=== PATIENT | male | born 1980 | race Caucasian/White ===

== ENCOUNTER 2020-11-07 19:08 | Inpatient (IN) | payer OTHER, SELFPAY ==
[~2020-11-07] VITALS: Ht 182.9 cm; Wt 81.6 kg
[2020-11-07] MEDS: BLOOD GLUCOSE MONITORING 1 DEV DEV FS SCH ×3 (07:00→23:25)
[2020-11-07 19:30] VITALS: BP 127/79
--- NOTE | 2020-11-07 19:30 | NUR ---
BIBA FROM CONSTRUCTION SITE, ALOC, ETOH. WAS FOUND AWAKE AND COMBATIVE SPITTING, BLOOD NOTED TO MOUTH AND NOSE. SPIT MASK PLACED TROUBLE OPERATOR. IS RESTLESS. ATTACHED TO CM = ST, O2 SAT = 93% SL 20G TO LEFT FOOT PMH : DM (WEARING MEDICAL ALERT BRACELET) UNKNOWN ALLERGIES
[2020-11-07] MEDS ORDERED: NACL 0.9% 1,000 ML IV SCH (19:35)
[2020-11-07 20:01] LABS: BASOPHILS # (AUTO) 0.6 K/uL (0.00-0.22); BASOPHILS % (AUTO) 5.1 % (0.0-2.0); EOSINOPHILS # (AUTO) 0.1 K/uL (0-0.4); EOSINOPHILS % (AUTO) 0.7 % (0.0-4.0); HEMATOCRIT 47.2 % (36-52); HEMOGLOBIN 15.7 g/dL (12.0-18.0); LYMPHOCYTES # (AUTO) 2.3 K/uL (2.0-11.5); LYMPHOCYTES % (AUTO) 20.9 % (20.5-51.1); MEAN CORPUSCULAR HEMOGLOBIN 30 pg (27-31); MEAN CORPUSCULAR HGB CONC 33 g/dL (33-37); MEAN CORPUSCULAR VOLUME 91.1 fL (80-94); MONOCYTES # (AUTO) 0.3 K/uL (0.8-1.0); MONOCYTES % (AUTO) 2.3 % (1.7-9.3); NEUTROPHILS # (AUTO) 7.9 K/uL (1.8-7.7); PLATELET COUNT (AUTO) 171 K/uL (140-450); RED BLOOD CELL COUNT(AUTO) 5.18 MIL/uL (4.20-6.10); RED CELL DISTRIBUTION WIDTH 13.3 % (11.6-13.7); WHITE BLOOD COUNT (AUTO) 11.1 K/uL (4.8-10.8)
--- NOTE | 2020-11-07 20:07 | NUR ---
RETURNED FROM CT
[2020-11-07 20:16] LABS: ALBUMIN 3.7 g/dL (3.4-5.0); ANION GAP 22.6 (8-16); CARBON DIOXIDE 18.5 mmol/L (21-32); POTASSIUM 3.1 mmol/L (3.5-5.1); TOTAL BILIRUBIN 0.4 mg/dL (0.0-1.0)
[2020-11-07] MEDS ORDERED: POTASSIUM CHL 20 MEQ/NACL 0.9% 1,000 ML IV ONE ×2 (20:50→22:35)
[2020-11-07] MEDS ORDERED: MAG SULF 2000 MG/WATER PREMIX 50 ML IV PRN ×2 (21:25→23:55)
[2020-11-07] MEDS ORDERED: MORPHINE SULFATE 2 MG/ML SYR IVP PRN (21:25)
[2020-11-07] MEDS ORDERED: ONDANSETRON 4 MG/2 ML VIAL IVP PRN ×2 (21:25→23:55)
[2020-11-07] MEDS ORDERED: DOCUSATE SODIUM 100 MG GELCAP PO PRN (21:25)
[2020-11-07] MEDS ORDERED: ACETAMINOPHEN 325 MG TAB PO PRN ×2 (21:25→23:55)
[2020-11-07] MEDS ORDERED: LORazepam 2 MG/ML VIAL IM/IVP PRN (21:25)
[2020-11-07] MEDS ORDERED: SODIUM PHOS / POTASSIUM PHOS 1 PKT PDR PO PRN (21:25)
[2020-11-07] MEDS ORDERED: ZOLPIDEM 5 MG TAB PO PRN (21:25)
[2020-11-07] MEDS: NACL 0.9% 1,000 ML IV SCH (21:25)
[2020-11-07] MEDS ORDERED: DEXTROSE 50% 50 ML SYR IVP PRN (21:25)
[2020-11-07] MEDS ORDERED: POTASSIUM CHLORIDE 10 MEQ TABER PO PRN ×2 (21:25→23:55)
[2020-11-07] MEDS ORDERED: HYDROcodone/APAP 5/325 MG 1 TAB TAB PO PRN ×2 (21:25→23:55)
[2020-11-07] MEDS ORDERED: INSULIN LISPRO SLIDING SCALE 100 UNITS/ML VIAL SUBQ PRN (21:25)
--- NOTE | 2020-11-07 21:29 | NUR ---
FACIAL ABRASIONS CLEANSED. APPROX 1 CM LACERATION NOTED RIGHT EYEBROW
[2020-11-07] MEDS ORDERED: KCL 20 MEQ/WATER INJ PREMIX 200 ML IV SCH (21:30)
[2020-11-07 21:57] LABS: CHOL/HDL RATIO 5.5 (1-4.5); FREE T4 (FREE THYROXINE) 1.04 ng/dL (0.76-1.46); PHOSPHORUS 4.8 mg/dL (2.5-4.9); THYROID STIMULATING HORMONE 1.23 uIU/mL (0.34-3.74)
[2020-11-07] MEDS ORDERED: LORazepam 2 MG/ML VIAL IVP ONE ×2 (22:05→22:30)
[2020-11-07] MEDS ORDERED: ETOMIDATE 20 MG/10 ML VIAL IVP ONE (22:16)
[2020-11-07] MEDS ORDERED: INTUBATION KIT MC ONE (22:17)
[2020-11-07] MEDS ORDERED: INSULIN REGULAR, HUMAN 100 UNIT/ML VIAL IVP ONE (22:30)
[2020-11-07] MEDS ORDERED: HALOPERIDOL IM 5 MG/ML VIAL IM ONE (22:30)
[2020-11-07] MEDS ORDERED: NACL 0.9% 3,000 ML IV ONE (22:30)
[2020-11-07] MEDS ORDERED: diphenhydrAMINE 50 MG/ML VIAL IVP ONE (22:30)
--- NOTE | 2020-11-07 22:30 | NUR ---
AWAKE PULLING ON RESTRAINTS, BELIGERANT, SPITTING ONTO STAFF, MUCH PROFANITY USED. UNABLE TO CALM PT TO BE ABLE TO PROVIDE CARE AT THIS TIME. ORDERS RECEIVED AND MEDICATED ORDERED
--- NOTE | 2020-11-07 22:53 | NUR ---
PT IS AGITATED/AGGRESSIVE AND UNABLE TO OBTAIN/PERFORM EKG AT THIS TIME
[2020-11-07 23:19] LABS: PROTHROMBIN TIME 9.2 secs (10.8-13.4)
--- NOTE | 2020-11-07 23:45 | NUR ---
ACCUCHECK = HIGH. INSULIN GTT BEGUN.
[2020-11-07] MEDS: INSULIN REGULAR, HUMAN 100 UNIT in NACL 0.9% 100 ML IV SCH ×2 (23:48)
[2020-11-07] MEDS ORDERED: INSULIN REGULAR, HUMAN 100 UNIT in NACL 0.9% 100 ML IV SCH ×2 (23:50)
[2020-11-07] MEDS ORDERED: MAGNESIUM OXIDE 400 MG TAB PO PRN (23:55)
[2020-11-07] MEDS ORDERED: MORPHINE SULFATE 4 MG/ML SYR IVP PRN (23:55)
[2020-11-08] VITALS (21 sets, daily range): BP systolic 116–157; BP diastolic 59–96
[2020-11-08] MEDS ORDERED: HALOPERIDOL IM 5 MG/ML VIAL ONE
--- NOTE | 2020-11-08 | NUR ---
RESTLESS, AGITATED. RIPPED OUT IV, HAS MANAGED TO GET ALL MONITORING EQUIPMENT REMOVED. INCONTINENT OF URINE. CLENCHING FISTS AND PULLING ON RESTRAINTS
[2020-11-08] MEDS ORDERED: LORazepam 2 MG/ML VIAL IVP PRN (00:05)
[2020-11-08] MEDS ORDERED: HALOPERIDOL IM 5 MG/ML VIAL IM ONE (00:15)
[2020-11-08] MEDS: BLOOD GLUCOSE MONITORING 1 DEV DEV FS SCH ×17 (00:25→20:33)
--- NOTE | 2020-11-08 00:50 | NUR ---
REMAINS RESTESS, PULLING ON TUBES. IV REESTABLISHED 20G LEFT A/C. PREPARING FOR INTUBATION.
--- NOTE | 2020-11-08 01:05 | NUR ---
DR. BARRIENTOS, RT AT BEDSIDE MEDICATED ORDERED WITH ETOMIDATE AND ROCURONIUM
[2020-11-08] MEDS ORDERED: PROPOFOL 1000 MG/100 ML PREMIX 100 ML IV ONE ×5 (01:08→07:39)
--- NOTE | 2020-11-08 01:10 | NUR ---
INTUBATED, 26 CM TO THE TEETH. ATTACHED TO VENT.
--- NOTE | 2020-11-08 01:20 | NUR ---
POST INTUBATION CXR DONE.
--- NOTE | 2020-11-08 01:45 | NUR ---
F/C INSERTED WITHOUT DIFFICULTY WITH IMMEDIATE RETURN ENEIDA COLORED URINE
--- NOTE | 2020-11-08 01:50 | NUR ---
PROPOFOL GTT ORDERED. PT HAS BEEN SLIGHTLY RESTLESS.
[2020-11-08 02:21] LABS: BARBITURATE, URINE NEGATIVE ng/ml (NEG <=200); BENZODIAZEPINE, URINE POSITIVE ng/mL (NEG <=200); CANNABINOID, URINE NEGATIVE ng/mL (NEG <=50); COCAINE, URINE NEGATIVE ng/mL (NEG <=300); OPIATE, URINE NEGATIVE ng/mL (NEG <=2000); PHENCYCLIDINE SCREEN,URINE NEGATIVE ng/mL (NEG <=25)
[2020-11-08 02:24] LABS: APPEARANCE,URINE CLEAR (CLEAR); BILIRUBIN,URINE NEGATIVE (NEGATIVE); BLOOD, URINE 3+ (NEGATIVE); COLOR,URINE AMBER (YELLOW); LEUKOCYTE ESTERASE ,URINE NEGATIVE (NEGATIVE); NITRITE, URINE NEGATIVE (NEGATIVE); UGLUCOSE 3+ (NEGATIVE)
[2020-11-08] MEDS: NACL 0.9% 1,000 ML IV SCH ×3 (02:25→13:25)
[2020-11-08] MEDS: DEXT 5% / NACL 0.45% 1,000 ML IV SCH ×4 (02:25→13:25)
[2020-11-08 02:26] LABS: WBC,URINE 0-5 /HPF (0-5)
--- NOTE | 2020-11-08 03:06 | NUR ---
PAGED DR. TURNER VIA EXCHANGER. DR. TURNER CALLED BACK IMMEDIATELY. CRITICAL RESULTS WERE REPORTED TO DOCTOR. NO CHANGES MADE AT THIS TIME.
[2020-11-08] MEDS ORDERED: NOREPINEPHRINE 4 MG in DEXTROSE 5% 250 ML IV PRN (03:55)
[2020-11-08] MEDS ORDERED: cefTRIAXone 250 MG VIAL ONE (04:00)
[2020-11-08] MEDS ORDERED: NOREPINEPHRINE 4 MG/4 ML VIAL IV ONE (04:01)
[2020-11-08 05:16] LABS: BASOPHILS % (AUTO) 0.3 % (0.0-2.0); HEMATOCRIT 41.3 % (36-52); LYMPHOCYTES # (AUTO) 2.3 K/uL (2.0-11.5); LYMPHOCYTES % (AUTO) 18.9 % (20.5-51.1); MEAN CORPUSCULAR HEMOGLOBIN 31 pg (27-31); MEAN CORPUSCULAR HGB CONC 34 g/dL (33-37); MEAN CORPUSCULAR VOLUME 90.8 fL (80-94); MONOCYTES # (AUTO) 0.8 K/uL (0.8-1.0); MONOCYTES % (AUTO) 6.3 % (1.7-9.3); NEUTROPHILS # (AUTO) 9.1 K/uL (1.8-7.7); NEUTROPHILS % (AUTO) 74.5 % (42.2-75.2); PLATELET COUNT (AUTO) 173 K/uL (140-450); RED BLOOD CELL COUNT(AUTO) 4.55 MIL/uL (4.20-6.10); RED CELL DISTRIBUTION WIDTH 13.4 % (11.6-13.7); WHITE BLOOD COUNT (AUTO) 12.2 K/uL (4.8-10.8)
[2020-11-08 05:34] LABS: ALBUMIN 3.1 g/dL (3.4-5.0); ANION GAP 13.3 (8-16); CARBON DIOXIDE 21.8 mmol/L (21-32); CREATININE 0.9 mg/dL (0.6-1.3); MAGNESIUM 1.7 mg/dL (1.8-2.4); POTASSIUM 3.1 mmol/L (3.5-5.1); TOTAL BILIRUBIN 0.2 mg/dL (0.0-1.0)
--- NOTE | 2020-11-08 06:02 | NUR ---
REPORT CALLED TO GEOFFREY RN
--- NOTE | 2020-11-08 06:05 | NUR ---
TRANSFERRED PATIENT FROM ED TO ICU WITH NO INCIDENT. RECEIVED PATIENT INTUBATED WITH 7.5 AT 26 CM AT TEETH. TUBE IS IN PLACE AND SECURED WITH ANCHOR-FAST. VENT CONNECTED TO RED OUTLET. ALARMS AUDIBLE. AMBU BAG AT BEDSIDE. NO SOB OR DISTRESS NOTED. WILL CONTINUE TO MONITOR PATIENT.
[2020-11-08] MEDS ORDERED: ETOMIDATE 20 MG/10 ML VIAL IVP ONE ×2 (06:11→06:15)
--- NOTE | 2020-11-08 06:15 | NUR ---
TRANSFERED TO ICU 8 VIA GURNEY ATTACHED TO AIR BREAKER OPERATOR, ACCOMPANIED BY RT, ERT, RN. VENTILATED PER AMBU BAG DURING TRANSPORT. CM = ST. INSULIN GTT INFUSING AT 4U/HR. PROPOFOL INFUSING AT 100 MCG/KG, LEVOPHED INFUSING AT 1.5MCG/KG/MINUTE.
--- NOTE | 2020-11-08 06:30 | NUR ---
ADMITTED FROM ER THIS 40 YEAR OLD MALE PATIENT;ORALLY INTUBATED AND VENTILATED AT 30% FIO2; SO2 100% . CARDIACSCOPE SHOWS ON SINUS TACHY HR 107/MIN; NO ARRHYTHMIAS SEEN. IVF IN PROGRESS NORMAL SALINE WITH 20 MEQ KCL AT 100 ML/HR, D5 1/2 NS AT 200 ML/HR, LEVOPHED DRIP AT 1.5 MCG/MIN, REGULAR INSULIN DRIP AT 4 UNITS/HR. AND PROFOPOL DRIP AT 100 MCG/.KG./MIN. WITH BILATERAL SOFT WRIST RESTRAINTS IN PLACE. ABDOMEN IS SOFT, KEPT NPO ORDERED. WITH EASON CATH IN SITU TO GRAVITY DRAINAGE BAG DRAINING TO CLOUDY URINE OUTPUT; INTACT.
--- NOTE | 2020-11-08 06:45 | NUR ---
INITIAL V/S FOLLOW BP 133/81 HR 103/MIN RR 20/MIN.
--- NOTE | 2020-11-08 07:00 | NUR ---
[facility] SCREENING SPECIMEN SENT TO MICROBIOLOGY.
--- NOTE | 2020-11-08 07:20 | NUR ---
ENDORSED TO AM SHIFT RN FOR CONTINUITY OF CARE.
--- NOTE | 2020-11-08 07:21 | NUR ---
RECEIVED REPORT FROM CHIEF CONTRACT OFFICER NURSE. PT IS RESTING IN BED. FLACC 0. ETT IN PLACE FIO2 30%, R 20, PEEP 5. RIGHT IV ON FOREARM 20G, LEFT IV ON AC 20G AND LEFT EJ 18G. INFUSING INSULIN AT 4 MCG/HR, LEVOPHED AT 1 MCG/MIN, K 20 EMQ AT 100ML/HR, DEXTROSE 5 % AT 200ML/HR, PROPOFOL AT 95 MCG/MIN, AND NS AT 150 ML/HR. SEVERAL ABRASIONS ON LOWER EXTREMITIES, HANDS AND FACE. EASON DRAINING BY GRAVITY. SAFETY MEASURES IN PLACE. CALL LIGHT WITHIN REACH. WILL CONTINUE TO MONITOR
--- NOTE | 2020-11-08 08:45 | NUR ---
INSERTED NG TUBE PRESCRIBED PER MD ORDER. PT TOLERATED WELL. AWAITING CHEST XRAY FOR PLACEMENT. SAFETY MEASURES IN PLACE. WILL CONTINUE TO MONITOR
[2020-11-08] MEDS ORDERED: chlordiazePOXIDE 25 MG CAP PO SCH (09:00)
[2020-11-08] MEDS ORDERED: PANTOPRAZOLE 40 MG INJ VIAL IVP SCH (09:00)
--- NOTE | 2020-11-08 09:00 | NUR ---
RECEIVED CALL FROM SOSA ZHONG, PT MOTHER. SOSA STATED SHE WILL BE THE PERSON OF CONTACT TO MAKE DECISIONS FOR PATIENT. WANTED UPDATE. UPDATE GIVEN. SOSA LEFT PHONE NUMBER [phone] TO CALL WITH ANY CHANGES OR CONCERNS
--- NOTE | 2020-11-08 09:30 | NUR ---
ADMINISTERED SCHED MED PRESCRIBED PER MD ORDER. PT TOLERATED WELL. SAFETY MEASURES IN PLACE. WILL CONTINUE TO MONITOR
[2020-11-08] MEDS: ENOXAPARIN 40 MG/0.4 ML SYR SUBQ SCH (09:51)
[2020-11-08] MEDS: PROPOFOL 1000 MG/100 ML PREMIX 100 ML IV PRN ×3 (10:05→20:30)
--- NOTE | 2020-11-08 10:20 | NUR ---
PATIENT HAS BEEN SCREENED AND CATEGORIZED HIGH NUTRITION RISK. PATIENT WILL BE SEEN WITHIN 1-2 DAYS OF ADMISSION. 11/09/20 REVIEWED BY ADELINE JEREZ RD
--- NOTE | 2020-11-08 10:45 | NUR ---
DR. TURNER AT BEDSIDE ASSESSING PATIENT
[2020-11-08] MEDS: MIDAZOLAM MDV 100 MG in NACL 0.9% 80 ML IV PRN (11:00)
[2020-11-08] MEDS ORDERED: MAG SULF 2000 MG/WATER PREMIX 50 ML IV SCH (11:00)
--- NOTE | 2020-11-08 11:15 | NUR ---
ORAL CARE PROVIDED TO PATIENT. PT TOLERATED WELL. SAFETY MEASURES IN PLACE. WILL CONTINUE TO MONITOR
--- NOTE | 2020-11-08 12:05 | NUR ---
11/08/20 RD INITIAL ASSESSMENT COMPLETED PLEASE REFER TO NUTRITION ASSESSMENT UNDER CARE ACTIVITY FOR ESTIMATED NUTRITIONAL NEEDS. 1. CURRENTLY NPO 2. WHEN MEDICALLY STABLE CONSIDER GLUCERNA 1.2 @ 70 ML/HR X 24 HR, START AT 10 ML/HR AND ADVANCE BY 10 ML/HR Q8H; FLUSH OF 50 ML Q4H 3. IF/WHEN EXTUBATED, CONSIDER SWALLOW EVALUATION FOR PO INTAKE; CCHO 75 GM DIET RESTRICTION 4. RD TO FOLLOW-UP 2-3 DAYS, HIGH RISK YULIANA COLEMAN RD
[2020-11-08] MEDS: chlordiazePOXIDE 25 MG CAP NG SCH ×2 (12:17→17:46)
--- NOTE | 2020-11-08 12:30 | NUR ---
PICC LINE NURSE BILL AT BEDSIDE. REPORT GIVEN. PT TO RECEIVE PICC LINE. SAFETY MEASURES IN PLACE. WILL CONTINUE TO MONITOR
[2020-11-08] MEDS ORDERED: TOMOMETER 1 DEV DEV MC ONE (13:24)
--- NOTE | 2020-11-08 13:24 | NUR ---
ADMINISTERED SCHEDULE MEDS PER MD ORDERS. PT TOLERATED. WILL CONTINUE TO MONITOR
--- NOTE | 2020-11-08 13:56 | NUR ---
PT IS RESTING IN BED WITH NO SIGNS OF DISTRESS. WILL CONTINUE TO MONITOR.
[2020-11-08 14:09] LABS: ANION GAP 11.5 (8-16); CARBON DIOXIDE 24.7 mmol/L (21-32); CREATININE 0.7 mg/dL (0.6-1.3); POTASSIUM 3.2 mmol/L (3.5-5.1)
[2020-11-08] MEDS: INSULIN REGULAR, HUMAN 100 UNIT in NACL 0.9% 100 ML IV SCH ×2 (14:15)
--- NOTE | 2020-11-08 14:20 | NUR ---
REPOSITIONED PT COMFORTABLY. PT TOLERATED WELL. SAFETY MEASURES IN PLACE. WILL CONTINUE TO MONITOR
[2020-11-08] MEDS: KCL 20 MEQ/WATER INJ PREMIX 200 ML IV PRN (15:42)
[2020-11-08 16:30] LABS: ANION GAP 12.8 (8-16); CARBON DIOXIDE 23.2 mmol/L (21-32); CREATININE 0.7 mg/dL (0.6-1.3)
--- NOTE | 2020-11-08 16:56 | NUR ---
NOTIFIED DR TURNER THAT ANION GAP CLOSED FOR TWO CONSECUTIVE DRAWS. ORDERED TO STOP DKA PROTOCOL, START LANTUS 20 UNITS SQ DAILY, STOP ALL FLUIDS AND START D5NS 60CC/HR, BLOOD GLUCOSE MONITORING ACHS WITH HUMALOG SLIDING SCALE
[2020-11-08] MEDS: DEXT 5% /NACL 0.9% 1,000 ML IV SCH (17:15)
--- NOTE | 2020-11-08 17:20 | NUR ---
MOTHER SOSA WANTS FATHER TONNY [phone] TO BE ON THE FACE SHEET. PBX UPDATED. SAFETY MEASURES IN PLACE. WILL CONTINUE TO MONITOR
[2020-11-08] MEDS: INSULIN LANTUS 100 UNITS/ML 10 ML VIAL SUBQ SCH (17:21)
--- NOTE | 2020-11-08 17:21 | NUR ---
MOTHER AT BEDSIDE VISITING PATIENT. UPDATE GIVEN. SAFETY MEASURES IN PLACE. WILL CONTINUE TO MONITOR
--- NOTE | 2020-11-08 17:36 | NUR ---
FATHER VISITING AT BEDSIDE. UPDATE GIVEN. SAFETY MEASURES IN PLACE. WILL CONTINUE TO MONITOR
--- NOTE | 2020-11-08 18:30 | NUR ---
REPOSITIONED PATIENT COMFORTABLY. PT TOLERATED WELL. SAFETY MEASURES IN PLACE. WILL CONTINUE TO MONITOR
--- NOTE | 2020-11-08 19:05 | NUR ---
ENDORSED TO NIGHTSHIFT NURSE FOR CONTINUITY OF CARE
--- NOTE | 2020-11-08 19:35 | NUR ---
RECEIVED REPORT FROM DAY SHIFT; PT SEDATED RASS-3 WT 81 KG ON PROPOFOL @ 45 MCG/KG/MIN VERSED 6 MG/HR. PT OPENS EYES UNABLE TO FOLLOW COMMANDS, BILAT SOFT WRIST RESTRAINTS IN PLACE, PUT TRYING TO PULL LINES. ETT TO VENT ON 24% FIO2 R 20 PEEP 5. NO SECRETIONS NOTED. SR ON MONITOR: +2 RADIAL/PEDAL PULSES. NO EDEMA NOTED. EASON CATH IN PLACE. OGT IN PLACE. SKIN INTACT. L UPPER ARM PICC LINE IN PLACE. SAFETY PRECAUTIONS IN PLACE. BED LOCKED IN LOWEST POSITION. FLACC 0.
[2020-11-08] MEDS: INSULIN LISPRO SLIDING SCALE 100 UNITS/ML VIAL SUBQ PRN (20:33)
--- NOTE | 2020-11-08 22:15 | NUR ---
PT TURNED REPOSITIONED; FLACC 0. NO S/S OF DISTRESS NOTED. WILL CONTINUE TO OBSERVE.
[2020-11-09] VITALS (24 sets, daily range): BP systolic 75–150; BP diastolic 8–105
[2020-11-09] MEDS: PROPOFOL 1000 MG/100 ML PREMIX 100 ML IV PRN ×4 (00:30→17:29)
[2020-11-09] MEDS: chlordiazePOXIDE 25 MG CAP NG SCH ×4 (00:34→17:27)
--- NOTE | 2020-11-09 00:35 | NUR ---
PT SEDATED; RASS-3 NO S/S OF DISTRESS NOTED. WILL CONTINUE TO OBSERVE
--- NOTE | 2020-11-09 02:11 | NUR ---
PT SEDATED; RASS -3, FLACC 0. PT TURNED AND REPOSITIONED.
[2020-11-09] MEDS: BLOOD GLUCOSE MONITORING 1 DEV DEV FS SCH ×4 (05:52→19:58)
[2020-11-09] MEDS: INSULIN LISPRO SLIDING SCALE 100 UNITS/ML VIAL SUBQ PRN ×3 (05:54→20:17)
[2020-11-09] MEDS: MIDAZOLAM MDV 100 MG in NACL 0.9% 80 ML IV PRN ×2 (06:22→22:54)
[2020-11-09 06:26] LABS: BASOPHILS % (AUTO) 0.5 % (0.0-2.0); EOSINOPHILS # (AUTO) 0.1 K/uL (0-0.4); EOSINOPHILS % (AUTO) 0.8 % (0.0-4.0); HEMATOCRIT 39.2 % (36-52); HEMOGLOBIN 13.3 g/dL (12.0-18.0); LYMPHOCYTES % (AUTO) 25.9 % (20.5-51.1); MEAN CORPUSCULAR HEMOGLOBIN 31 pg (27-31); MEAN CORPUSCULAR HGB CONC 34 g/dL (33-37); MEAN CORPUSCULAR VOLUME 91.8 fL (80-94); MONOCYTES # (AUTO) 0.6 K/uL (0.8-1.0); MONOCYTES % (AUTO) 7.9 % (1.7-9.3); NEUTROPHILS # (AUTO) 5.1 K/uL (1.8-7.7); NEUTROPHILS % (AUTO) 64.9 % (42.2-75.2); PLATELET COUNT (AUTO) 133 K/uL (140-450); RED BLOOD CELL COUNT(AUTO) 4.27 MIL/uL (4.20-6.10); RED CELL DISTRIBUTION WIDTH 13.9 % (11.6-13.7); WHITE BLOOD COUNT (AUTO) 7.8 K/uL (4.8-10.8)
--- NOTE | 2020-11-09 06:33 | NUR ---
MAX CARE DONE; PT TURNED AND REPOSITIONED NO S/S OF DISTRESS NOTED.
[2020-11-09 07:03] LABS: ANION GAP 12.5 (8-16); CARBON DIOXIDE 23.8 mmol/L (21-32); CREATININE 0.6 mg/dL (0.6-1.3); POTASSIUM 3.3 mmol/L (3.5-5.1)
--- NOTE | 2020-11-09 07:30 | NUR ---
RECEIVED REPORT FROM MANAGER EQUIPMENT NURSE. IN BED, HOB ELEVATED. FLACC 0. ETT TO VENT ACVC FIO2 24%, TV 500, R 20, PEEP 5. RIGHT IV LEFT FOREARM IV 20G AND LEFT EJ 18G. WITH COLLEEN PICC D5NS AT 60ML/HR, PROPOFOL AT 45 MCG/MIN, VERSED AT 6MG/HR. WITH MULTIPLE BRUISING, SWELLING AND ABRASIONS. EASON DRAINING BY GRAVITY. OGT INTACT. SAFETY MEASURES IN PLACE. CALL LIGHT WITHIN REACH. WILL CONTINUE TO MONITOR
--- NOTE | 2020-11-09 07:40 | NUR ---
RECEIVED INTUBATED PT WITH A 7.5 ETT SECURED @25TEETH/GUM ON VENT. SETTINGS AC 20, VT 500, PEEP 5 AND FIO2 24%. WHEN ENTERED ROOM PT VERY AGITATED MOVING AROUND IN BED, NURSE NOTIFIED. PT SUCTIONED OBTAINED SCANT AMOUNT OF THICK WHITE SECRETIONS, AIRWAYS IS PATENT AND ETT IS SECURE WITH ANCHOR FAST DEVICE. VENT IS PLUGGED INTO A RED OUTLET WITH ALARMS ON AND FUNCTIONING. WILL CONTINUE TO MONITOR.
[2020-11-09] MEDS: INSULIN LANTUS 100 UNITS/ML 10 ML VIAL SUBQ SCH (08:05)
[2020-11-09] MEDS: ENOXAPARIN 40 MG/0.4 ML SYR SUBQ SCH (08:05)
[2020-11-09] MEDS: PANTOPRAZOLE 40 MG INJ VIAL IVP SCH (08:05)
[2020-11-09] MEDS: DEXT 5% /NACL 0.9% 1,000 ML IV SCH (08:06)
[2020-11-09] MEDS: KCL 20 MEQ/WATER INJ PREMIX 200 ML IV PRN (08:06)
--- NOTE | 2020-11-09 08:45 | NUR ---
DUE MEDS GIVEN. ORAL CARE AND EASON CARE DONE. TURNED AND REPOSITIONED
--- NOTE | 2020-11-09 10:40 | NUR ---
SEEN AND EXAMINED BY DR GARCIA WITH NEW ORDERS NOTED AND CARRIED OUT
[2020-11-09] MEDS ORDERED: POTASSIUM CHLORIDE 20% 40 MEQ/15 ML UDC GT SCH ×2 (11:00)
--- NOTE | 2020-11-09 11:15 | NUR ---
STARTED PRECEDEX DRIP AT 0.7MCG/KG/HR. WILL TITRATE DOWN ON PROPOFOL AND VERSED ORDERED
[2020-11-09] MEDS: DEXMEDETOMIDINE HCL 400 MCG in NACL 0.9% 96 ML IV PRN ×3 (11:46→22:54)
[2020-11-09] MEDS: PHENobarbital 130 MG/ML VIAL IV SCH ×2 (11:46→20:20)
--- NOTE | 2020-11-09 15:50 | NUR ---
TUBE FEEDING STARTED GLUCERNA 1.2 20CC/HR TO INCREASE BY 10CC EVERY 4HRS UNTIL GOAL OF 50CC/HR IS MET
--- NOTE | 2020-11-09 17:29 | NUR ---
PT REMAINS ON DOCUMENTED VENT SETTINGS. PT SEDATED NOT IN ANY DISTRESS. VENT ALARMS ON AND FUNCTIONING.
--- NOTE | 2020-11-09 17:30 | NUR ---
MAX CARE DONE. TURNED AND REPOSITIONED PT
--- NOTE | 2020-11-09 18:30 | NUR ---
RASS-3, NO RESPIRATORY DISTRESS, NO S/S OF PAIN. TITRATE DOWN PROPOFOL AND VERSED ORDERED
--- NOTE | 2020-11-09 19:35 | NUR ---
RECEIVED REPORT FROM DAY SHIFT; PT SEDATED RASS-3 WT 81 KG ON PROPOFOL @ 45 MCG/KG/MIN VERSED 6 MG/HR. PT OPENS EYES UNABLE TO FOLLOW COMMANDS, BILAT SOFT WRIST RESTRAINTS IN PLACE, PUT TRYING TO PULL LINES. ETT TO VENT ON 24% FIO2 R 20 PEEP 5. NO SECRETIONS NOTED. SR ON MONITOR: +2 RADIAL/PEDAL PULSES. NO EDEMA NOTED. EASON CATH IN PLACE. OGT IN PLACE WITH FEEDINGS RUNNING. SKIN INTACT. L UPPER ARM PICC LINE IN PLACE. SAFETY PRECAUTIONS IN PLACE. BED LOCKED IN LOWEST POSITION. FLACC 0. Addendum: 11/09/[address] Traylor RN propofol @ 10 mcg/kg/min, versed @ 2mg
--- NOTE | 2020-11-09 20:27 | NUR ---
PT RECEIVED ON AC/VC 500 +5 f20 W/ 7.5 ETT SECURED @ 25CM. VENT IS PLUGGED INTO RED OUTLET W/ ALARMS ON AND AUDIBLE AMBU IS AT BEDSIDE WILL CONTINUE TO MONITOR
[2020-11-10] VITALS (48 sets, daily range): BP systolic 89–160; BP diastolic 38–104
[2020-11-10] MEDS: chlordiazePOXIDE 25 MG CAP NG SCH ×5 (00:40→23:26)
[2020-11-10] MEDS: PROPOFOL 1000 MG/100 ML PREMIX 100 ML IV PRN ×2 (00:41→07:00)
[2020-11-10] MEDS: DEXT 5% /NACL 0.9% 1,000 ML IV SCH ×2 (02:15→19:29)
[2020-11-10] MEDS: DEXMEDETOMIDINE HCL 400 MCG in NACL 0.9% 96 ML IV PRN ×3 (03:53→23:00)
[2020-11-10] MEDS: BLOOD GLUCOSE MONITORING 1 DEV DEV FS SCH ×4 (05:49→23:40)
[2020-11-10] MEDS: INSULIN LISPRO SLIDING SCALE 100 UNITS/ML VIAL SUBQ PRN ×2 (05:55→16:32)
[2020-11-10 06:20] LABS: ANION GAP 10.1 (8-16); CARBON DIOXIDE 24.2 mmol/L (21-32); CREATININE 0.7 mg/dL (0.6-1.3); POTASSIUM 3.3 mmol/L (3.5-5.1)
[2020-11-10 06:24] LABS: BASOPHILS % (AUTO) 0.4 % (0.0-2.0); EOSINOPHILS # (AUTO) 0.1 K/uL (0-0.4); EOSINOPHILS % (AUTO) 1.2 % (0.0-4.0); HEMATOCRIT 39.3 % (36-52); HEMOGLOBIN 13.1 g/dL (12.0-18.0); LYMPHOCYTES # (AUTO) 2.2 K/uL (2.0-11.5); LYMPHOCYTES % (AUTO) 25.5 % (20.5-51.1); MEAN CORPUSCULAR HEMOGLOBIN 31 pg (27-31); MEAN CORPUSCULAR HGB CONC 33 g/dL (33-37); MONOCYTES # (AUTO) 0.6 K/uL (0.8-1.0); NEUTROPHILS # (AUTO) 5.7 K/uL (1.8-7.7); NEUTROPHILS % (AUTO) 65.9 % (42.2-75.2); PLATELET COUNT (AUTO) 133 K/uL (140-450); RED BLOOD CELL COUNT(AUTO) 4.23 MIL/uL (4.20-6.10); RED CELL DISTRIBUTION WIDTH 13.6 % (11.6-13.7); WHITE BLOOD COUNT (AUTO) 8.7 K/uL (4.8-10.8)
--- NOTE | 2020-11-10 07:25 | NUR ---
RECEIVED INTUBATED PT WITH A 7.5 ETT SECURED @25TEETH/GUM ON VENT. SETTINGS AC 20, VT 500, PEEP 5 AND FIO2 24%. PT SLIGHTLY AGITATED MOVING AROUND IN BED, NURSE AWARE. PT SUCTIONED OBTAINED SMALL AMOUNT OF THICK WHITE SECRETIONS, AIRWAYS IS PATENT AND ETT IS SECURE WITH ANCHOR FAST DEVICE. VENT IS PLUGGED INTO A RED OUTLET WITH ALARMS ON AND FUNCTIONING. WILL CONTINUE TO MONITOR.
--- NOTE | 2020-11-10 07:30 | NUR ---
RECEIVED REPORT FROM CYLINDER CHECKER NURSE. IN BED, HOB ELEVATED. FLACC 0. ETT TO VENT ACVC FIO2 24%, TV 500, R 20, PEEP 5. RIGHT IV LEFT FOREARM IV 20G AND LEFT EJ 18G. WITH COLLEEN PICC D5NS AT 60ML/HR, PROPOFOL AT 5 MCG/MIN, VERSED AT 1MG/HR, PRECEDEX 1.2MCG/KG/HR. WITH MULTIPLE BRUISING, SWELLING AND ABRASIONS. EASON DRAINING BY GRAVITY. OGT IN PLACE. SAFETY MEASURES IN PLACE. CALL LIGHT WITHIN REACH. WILL CONTINUE TO MONITOR
--- NOTE | 2020-11-10 08:50 | NUR ---
DR GARCIA CALLED, ORDERED TO STOP PROPOFOL AND VERSED
[2020-11-10] MEDS: ENOXAPARIN 40 MG/0.4 ML SYR SUBQ SCH (09:00)
[2020-11-10] MEDS: INSULIN LANTUS 100 UNITS/ML 10 ML VIAL SUBQ SCH (09:00)
[2020-11-10] MEDS: PANTOPRAZOLE 40 MG INJ VIAL IVP SCH (09:00)
--- NOTE | 2020-11-10 09:15 | NUR ---
DUE MEDS GIVEN
--- NOTE | 2020-11-10 09:20 | NUR ---
DR GARCIA AT BEDSIDE, PLACED PT ON CPAP
--- NOTE | 2020-11-10 09:22 | NUR ---
CALLED TO ICU TO SPEAK WITH . PHYSICIAN HAS PT ON SBT. PHYSICIAN STATES TO EXTUBATE PT AFTER 10-15 MIN. ADEQUATE WEANING PARAMETERS ON SBT. PT ABLE TO OPEN EYES FOLLOW SIMPLE COMMANDS.
[2020-11-10] MEDS ORDERED: POTASSIUM CHLORIDE 10 MEQ TABER PO SCH (09:30)
--- NOTE | 2020-11-10 09:40 | NUR ---
ADEQUATE WEANING PARAMETERS NO ABG ORDERED BY . LEAK TEST POSITIVE FOR LEAK AROUND RN DOCUMENT IMPROVEMENT BALLOON. PT EXTUBATED AND PLACED ON 3L NC. NO STRIDOR HEARD ON AUSCULTATION. NURSE BEDSIDE.
--- NOTE | 2020-11-10 09:40 | NUR ---
RT AT BEDSIDE. PT EXTUBATED, PLACED ON 3L O2 NC. NO RESPIRATORY DISTRESS, O2SAT 98-100%
--- NOTE | 2020-11-10 10:07 | NUR ---
PT AGITATED AT THIS TIME MOVING AROUND IN BED REMOVING PULSE OX. PULSE OX REAPPLIED SPO2 96%. NO RESPIRATORY DISTRESS NOTED.
[2020-11-10] MEDS: LORazepam 2 MG/ML VIAL IM/IVP PRN ×6 (10:10→23:48)
--- NOTE | 2020-11-10 10:10 | NUR ---
PT CONFUSED, AGITATED, ATTEMPTING TO AMBULATE WITHOUT ASSIST. ATIVAN GIVEN ORDERED
--- NOTE | 2020-11-10 10:55 | NUR ---
PT STILL SEVERELY AGITATED AND RESTLESS. PAGED DR GARCIA. ORDERED PHENOBARBITAL 130MG IVP ONCE
[2020-11-10] MEDS ORDERED: PHENobarbital 130 MG/ML VIAL ONE (10:56)
[2020-11-10] MEDS ORDERED: PHENobarbital 130 MG/ML VIAL IV SCH (11:00)
--- NOTE | 2020-11-10 11:27 | NUR ---
PT KEEPS REMOVING NASAL CANNULA SPO2 94% ON ROOM AIR, NO SOB NOTED.
[2020-11-10] MEDS: KCL 20 MEQ/WATER INJ PREMIX 200 ML IV PRN (13:57)
[2020-11-10] MEDS ORDERED: DIAZEPAM PFS 10 MG/2 ML SYR IVP SCH (14:30)
--- NOTE | 2020-11-10 14:50 | NUR ---
CALLED DR GARCIA. NOTIFIED THAT PT IS TILL VERY AGITATE AND RESTLESS AND CONSTANTLY ATTEMPTING TO GET OUT OF BED AND PULL LINES . ORDERED VALIUM 10MG IVP ONCE AND TO PLCE PT ON 4 POINT RESTRAINTS
--- NOTE | 2020-11-10 15:00 | NUR ---
PLACED PT ON 4 POINT RESTRAINTS. WILL ASSESS Q15MIN AND CHECK VS Q15MIN
--- NOTE | 2020-11-10 17:00 | NUR ---
PT RESTLESS AND CONFUSED IN BED, ATTEMPTING TO BITE OFF RESTRAINTS. REPOSITIONED PT
--- NOTE | 2020-11-10 18:20 | NUR ---
MOTHER AT BEDSIDE
--- NOTE | 2020-11-10 18:30 | NUR ---
RESTRAINTS IN PLACE, PT STILL RESTLESS. VS STABLE, NO APPARENT DISTRESS, SKIN INTACT, GOOD CIRCULATION ON LIMBS
--- NOTE | 2020-11-10 23:30 | NUR ---
Pt. restless and confused on 4 point velcro restraints. Pulled out PICC line. Reinserted by JAMES Hinds to Rt. UA. Pulled out 3 cm and dressing reapplied by JAMES Hinds (PICC Line Nurse) as tip is in Rt. Atrium. Pt. oriented and given comfort and reassurance;more cooperative @ this time but . Secretions suctioned prn. Given Ativan prn. Precedex remains @ 1.2 mcg/Kg/Hr. Librium adm orally; able to swallow pills w/ water well. Kept clean & dry. Repositioned for comfort. Needs anticipated. Will cont. to monitor.
[2020-11-11] VITALS (45 sets, daily range): BP systolic 90–177; BP diastolic 56–102
[2020-11-11] MEDS: LORazepam 2 MG/ML VIAL IM/IVP PRN (00:52)
[2020-11-11] MEDS: DEXMEDETOMIDINE HCL 400 MCG in NACL 0.9% 96 ML IV PRN ×4 (02:20→19:28)
--- NOTE | 2020-11-11 03:30 | NUR ---
Pt. given Atian 2 mg prn and Precedex Drip. Asleep @ this time. SR on the scope. VSS Remains on 4 point restraint as pt. unpredictable and does awaken and attempt to twist body and pull out lines and equipments periodically. Will cont. to monitor.
[2020-11-11] MEDS: chlordiazePOXIDE 25 MG CAP NG SCH ×4 (06:00→23:40)
[2020-11-11 06:05] LABS: BASOPHILS % (AUTO) 0.3 % (0.0-2.0); EOSINOPHILS # (AUTO) 0.1 K/uL (0-0.4); EOSINOPHILS % (AUTO) 0.7 % (0.0-4.0); HEMATOCRIT 39.3 % (36-52); HEMOGLOBIN 13.3 g/dL (12.0-18.0); LYMPHOCYTES # (AUTO) 1.8 K/uL (2.0-11.5); LYMPHOCYTES % (AUTO) 21.5 % (20.5-51.1); MEAN CORPUSCULAR HEMOGLOBIN 31 pg (27-31); MEAN CORPUSCULAR HGB CONC 34 g/dL (33-37); MEAN CORPUSCULAR VOLUME 91.5 fL (80-94); MONOCYTES # (AUTO) 0.6 K/uL (0.8-1.0); MONOCYTES % (AUTO) 7.2 % (1.7-9.3); NEUTROPHILS # (AUTO) 5.8 K/uL (1.8-7.7); NEUTROPHILS % (AUTO) 70.3 % (42.2-75.2); PLATELET COUNT (AUTO) 129 K/uL (140-450); RED CELL DISTRIBUTION WIDTH 13.1 % (11.6-13.7); WHITE BLOOD COUNT (AUTO) 8.3 K/uL (4.8-10.8)
[2020-11-11 06:26] LABS: ANION GAP 13.4 (8-16); CARBON DIOXIDE 24.3 mmol/L (21-32); CREATININE 0.6 mg/dL (0.6-1.3)
[2020-11-11 06:33] LABS: POTASSIUM 2.7 mmol/L (3.5-5.1)
[2020-11-11] MEDS: KCL 20 MEQ/WATER INJ PREMIX 200 ML IV PRN (06:46)
--- NOTE | 2020-11-11 07:10 | NUR ---
Pt. .remains on [address] Deleon, component assembler supervisor for Dr. Sanchez made aware of K+=2.7 & Ca+=8.2 w/ new orders noted & carried out. KRider infusing @ this time. Pt. to get 80 mEqs total. On Precedex Drip. Librium not adm. as pt. asleep @ this time. Report given to JAMES Corado w/ all questions answred Care endorsed.
--- NOTE | 2020-11-11 08:20 | NUR ---
Change of shift report received from May RN met pt, lethagic but to his name on four point behavioral restraints, right hand and left restraints released to assess pt's behaioral condition. says his name corectly oriented to himself only as at this time. on room air vitals stable afebrile on Precedex drip to alleviates anxiety. Reorientation to the unit skin checked at the restraints sites, all distal pulses palpable and ROM to all extremities will continue to monitor and treat as per care plan
--- NOTE | 2020-11-11 08:30 | NUR ---
Dr Deleon was here discussed pt's condition at the bedside assessment done as required for continous use of behavioral restraints. Order received to start Phenobarbital 65mg Q8hr round the clock, banana bag and to decrease Precedex slowly.
[2020-11-11] MEDS ORDERED: MAG SULF 2000 MG/WATER PREMIX 50 ML IV SCH (09:30)
--- NOTE | 2020-11-11 09:36 | NUR ---
@[phone] Pt's mother called for updates over the phone and she said will be here later to visit. @[phone] Dr Bettencourt was here mentioned that Dr Deleon was here already and order received for Phenobarbital.
[2020-11-11] MEDS: ENOXAPARIN 40 MG/0.4 ML SYR SUBQ SCH (10:17)
[2020-11-11] MEDS: PHENobarbital 130 MG/ML VIAL IV SCH ×2 (10:18→18:14)
[2020-11-11] MEDS: KCL 20 MEQ/WATER INJ PREMIX 100 ML IV SCH ×2 (10:18→12:41)
[2020-11-11] MEDS: PANTOPRAZOLE 40 MG INJ VIAL IVP SCH (10:20)
[2020-11-11] MEDS: INSULIN LANTUS 100 UNITS/ML 10 ML VIAL SUBQ SCH (10:20)
[2020-11-11] MEDS: MULTIVITAMIN-12 10 ML, THIAMINE 100 MG, MAGNESIUM SULFATE 50% 2,000 MG, FOLIC ACID 1 MG... IV SCH ×5 (11:00)
[2020-11-11] MEDS: BLOOD GLUCOSE MONITORING 1 DEV DEV FS SCH ×3 (11:30→20:02)
[2020-11-11] MEDS: DEXT 5% /NACL 0.9% 1,000 ML IV SCH (11:35)
--- NOTE | 2020-11-11 12:00 | NUR ---
ALL the behavioral restraints were removed pt following directions there are some mild agitations but not violent as at deirdre time will enhanced close observation'.
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
--- NOTE | 2020-11-11 14:26 | NUR ---
11/11/20 RD FOLLOW UP COMPLETED PLEASE REFER TO NUTRITION ASSESSMENT UNDER CARE ACTIVITY FOR ESTIMATED NUTRITIONAL NEEDS. 1. CURRENTLY NPO 2. RECOMMEND [facility]ALL[facility] WHEN MEDICALLY CLEARED. 3. RD TO FOLLOW UP 2-3DAYS; HIGH RISK YULIANA COLEMAN RD
--- NOTE | 2020-11-11 15:24 | NUR ---
Close monitoring RN as Addendum: 11/11/20 at 1526 by Agency 02 RN RN RN at the bedside vitals signs stable ongoing hydration via PO and Banana bag. No restraints no agitation
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
--- NOTE | 2020-11-11 15:53 | NUR ---
DC PLANNING MANNIE RECEIVED A CALL FROM PATIENT'S MOTHER SOSA ZHONG WHO REQUESTED A HOSPITAL VERIFICATION LETTER FOR PATIENT'S WORK. ACCORDING TO PATIENT'S MOTHER MRS. ZHONG PATIENT'S EMPLOYER IS REQUESTING THIS LETTER IN ORDER TO GET A MEDICAL LEAVE. SW AGREED TO PROVIDED FOR PATIENT'S MOTHER AND WILL BE READY BY THE END OF TODAY 11/11/2020. PATIENT'S MOTHER WAS HAPPY TO GET NEWS AND WILL OVERLOCK SEWING MACHINE OPERATOR THE LETTER SOON POSSIBLE. SW WILL FOLLOW UP WITH FAMILY NEEDED. Addendum: 11/12/20 at 1307 by Madhavi Carrion CM DC PLANNING PATIENT IS A 40 YEAR OLD MALE ADMITTED ON 11/08/2020. INTO THE [facility]ED DUE TO ETOH INTOXICATION. PATIENT WAS PLACED ON MECHANICAL VENTILATION SUPPORT AND PROPOFOL INFUSION. SW MET WITH PATIENT AT BEDSIDE TO DISCUSS AND GATHER PATIENT'S COLLATERAL INFORMATION. PATIENT REPORTED LIVING AT HOME WITH HIS AND HAVING FAMILY SUPPORT FROM HIS PARENTS,AND SIBLINGS. PATIENT REPORTED BEEN ACTIVE AND INDEPENDENT AT HOME AND AT WORK. PATIENT REPORTED NOT HAVING ADVANCE DIRECTIVE AND WAS INTERESTED ON GETTING INFORMATION PACKET PROVIDED BY MANNIE AT THE TIME OF VISIT. PATIENT REPORTED NOT HAVING OR NEEDING DME AND NOT HAVING ANY ISSUES WITH GETTING OR TAKING ANY MEDICATIONS. STATED THAT HE CHOOSES TO NOT TAKE SO MUCH MEDICATIONS FOR HIS DIABETES. PATIENT REPORTED HAVING A PCP IN [place] BUT NOT GOING CURRENTLY FOR HIS APPOINTMENTS WITH HIS PRIMARY DOCTOR. SW EXPLAINED TO PATIENT THAT AN APPOINTMENT WILL BE SCHEDULED FOR HIM BY THESE CAFETERIA COUNTER ATTENDANT WITH HIS MD AFTER DISCHARGE PT. AGREED TO GO AND TAKE THE APPOINTMENT. PER PATIENT HIS OR MOTHER WILL BE ASSISTING HIM WITH TRANSPORTATION BACK HOME WHEN HE IS READY FOR DISCHARGE. SW WILL FOLLOW UP WITH PATIENT NEEDED.
--- NOTE | 2020-11-11 19:35 | NUR ---
Change of shift report to Virgen RN updates at the bedside occasional agitation, confused, delusional restlessness but redirectable with lots of support persuasion no longer on restraints vitals signs stable no changes in care plan and safe on the unit as at this time.
--- NOTE | 2020-11-11 19:35 | NUR ---
RECEIVED PATIENT FROM AM SHIFT NURSE FOR CONTINUITY OF CARE. ALERT WITH CONFUSION. ABLE TO REORIENT, PATIENT ABLE TO FOLLOW SIMPLE COMMANDS BUT CONTINUES TO BE ALTERED. S1/S2 AUSCULTATED. RESPIRATIONS EVEN, UNLABORED. NO S/S RESPIRATORY DISTRESS. PATIENT DENIES PAIN. SKIN WARM, DRY. FACIAL WOUNDS NOTED AND PRESENT UPON ADMISSION. RIGHT UPPER ARM PICC PATENT/INTACT, INFUSING FLUIDS AND PRECEDEX. ABDOMEN SOFT, NONTENDER, NONDISTENDED. BOWEL SOUNDS ACTIVE x4 QUADRANTS. EASON CATHETER IN PLACE WITH LIGHT ENEIDA URINE DRAINING TO GRAVITY. SAFETY PRECAUTIONS IN PLACE. PLAN OF CARE DISCUSSED. CLOSE MONITORING BY ALL STAFF.
--- NOTE | 2020-11-11 20:48 | NUR ---
SPOKE TO MOTHER SOSA OVER THE PHONE AND GAVE AN UPDATE.
--- NOTE | 2020-11-11 21:30 | NUR ---
PATIENT CONFUSED, ABLE TO REORIENT BUT PATIENT NEEDS CONSTANT SUPERVISION. ALL STAFF MONITORING CLOSELY. SAFETY PRECAUTIONS IN PLACE. PATIENT IS SAFELY IN BED.
--- NOTE | 2020-11-11 23:15 | NUR ---
PATIENT VERY AGITATED. STAFF AT BEDSIDE TO MONITOR. NO S/S RESPIRATORY DISTRESS. NO C/O PAIN. PATIENT IS CLEAN/DRY.
[2020-11-12] VITALS (15 sets, daily range): BP systolic 106–150; BP diastolic 66–99
[2020-11-12] MEDS: LORazepam 2 MG/ML VIAL IM/IVP PRN (00:13)
[2020-11-12] MEDS: PHENobarbital 130 MG/ML VIAL IV SCH (00:13)
--- NOTE | 2020-11-12 01:15 | NUR ---
STAFF AT BEDSIDE TO MONITOR PATIENT DUE TO AGITATION. FREQUENT REORIENTATION BY ALL STAFF. NO S/S RESPIRATORY DISTRESS. DENIES PAIN. PATIENT IS CLEAN/DRY.
--- NOTE | 2020-11-12 03:21 | NUR ---
PATIENT ASLEEP. NO S/S RESPIRATORY DISTRESS. PATIENT IS CLEAN/DRY. STAFF AT BEDSIDE, READY TO REORIENT NEEDED.
[2020-11-12] MEDS: DEXT 5% /NACL 0.9% 1,000 ML IV SCH (04:05)
--- NOTE | 2020-11-12 05:42 | NUR ---
INCONTINENT CARE RENDERED. PATIENT CONTINUES TO BE AGITATED. STAFF AT BEDSIDE. NO S/S RESPIRATORY DISTRESS. NO C/O PAIN. ALL NEEDS ANTICIPATED AND MET.
[2020-11-12] MEDS: DEXMEDETOMIDINE HCL 400 MCG in NACL 0.9% 96 ML IV PRN (05:53)
[2020-11-12] MEDS: chlordiazePOXIDE 25 MG CAP NG SCH (05:54)
--- NOTE | 2020-11-12 05:54 | NUR ---
PROVIDED EDUCATION REGARDING MEDICATION. PATIENT NEEDS ENCOURAGEMENT TO REINFORCE TEACHING. CONTINUES TO BE AGITATED AT TIMES BUT ABLE TO REDIRECT. CLOSE MONITORING BY ALL STAFF.
[2020-11-12] MEDS: BLOOD GLUCOSE MONITORING 1 DEV DEV FS SCH ×2 (06:35→11:30)
[2020-11-12 06:46] LABS: ANION GAP 14.6 (8-16); CARBON DIOXIDE 23.7 mmol/L (21-32); CREATININE 0.6 mg/dL (0.6-1.3); POTASSIUM 3.3 mmol/L (3.5-5.1)
[2020-11-12 06:56] LABS: BASOPHILS % (AUTO) 0.4 % (0.0-2.0); EOSINOPHILS # (AUTO) 0.1 K/uL (0-0.4); EOSINOPHILS % (AUTO) 1.9 % (0.0-4.0); HEMATOCRIT 38.9 % (36-52); HEMOGLOBIN 13.2 g/dL (12.0-18.0); LYMPHOCYTES # (AUTO) 1.4 K/uL (2.0-11.5); LYMPHOCYTES % (AUTO) 21.4 % (20.5-51.1); MEAN CORPUSCULAR HEMOGLOBIN 31 pg (27-31); MEAN CORPUSCULAR HGB CONC 34 g/dL (33-37); MEAN CORPUSCULAR VOLUME 92.1 fL (80-94); MONOCYTES # (AUTO) 0.5 K/uL (0.8-1.0); MONOCYTES % (AUTO) 7.4 % (1.7-9.3); NEUTROPHILS # (AUTO) 4.4 K/uL (1.8-7.7); NEUTROPHILS % (AUTO) 68.9 % (42.2-75.2); PLATELET COUNT (AUTO) 144 K/uL (140-450); RED BLOOD CELL COUNT(AUTO) 4.22 MIL/uL (4.20-6.10); RED CELL DISTRIBUTION WIDTH 13.3 % (11.6-13.7); WHITE BLOOD COUNT (AUTO) 6.4 K/uL (4.8-10.8)
--- NOTE | 2020-11-12 07:10 | NUR ---
Assumed pt care met pt awake alert oriented x3 to person place and situation. Pt said the he is feeling better more appropriate, cooperative no sign of agitation, just weakness, vitals signs stable afebrile. Encourage to call for help call light at reach, bed in low position, encouraged to verbalize his concerns. Education on care plan, reorientation to immediate environment to alleviates anxiety and ongoing close monitoring for safety.
--- NOTE | 2020-11-12 08:28 | NUR ---
pt's mother called updates over the phone and i used the handset at the bedside for pt to speak to his mother. He told his mother that he is getting better and wants to go home. PT said that he is hungry order for speech evaluation for right food consistency.
[2020-11-12] MEDS ORDERED: KCL 20 MEQ/WATER INJ PREMIX 200 ML IV SCH (09:30)
[2020-11-12] MEDS: PANTOPRAZOLE 40 MG INJ VIAL IVP SCH (09:31)
[2020-11-12] MEDS: INSULIN LANTUS 100 UNITS/ML 10 ML VIAL SUBQ SCH (09:36)
[2020-11-12] MEDS: ENOXAPARIN 40 MG/0.4 ML SYR SUBQ SCH (09:37)
--- NOTE | 2020-11-12 10:15 | NUR ---
Assisted with breakfast regular consistency ate 75% no aspiration problem encountered carbohydrate controlled
--- NOTE | 2020-11-12 10:40 | NUR ---
pt had huge BM complete assist with the tennille care and bed linen changed
--- NOTE | 2020-11-12 11:57 | NUR ---
pt requested to talk to his mother updates at the bedside used the phone handset/speaker
[2020-11-12] MEDS ORDERED: chlordiazePOXIDE 25 MG CAP NG SCH (12:00)
[2020-11-12] MEDS: MULTIVITAMIN-12 10 ML, THIAMINE 100 MG, MAGNESIUM SULFATE 50% 2,000 MG, FOLIC ACID 1 MG... IV SCH ×5 (12:56)
[2020-11-12] MEDS: INSULIN LISPRO SLIDING SCALE 100 UNITS/ML VIAL SUBQ PRN (12:57)
--- NOTE | 2020-11-12 14:58 | NUR ---
Pt became very restless pulled out PICC line, madonna yelled out that he wants to "check himself out and I can not hold him against his rights as an [place] citizen. Persuasion at the bedside for him to stay, he repeatedly said he wants to go, his mother contacted over the phone, he did not listen to her, the data warehouse specialist Iwona RN was at the bedside too called Dr Deleon notified over the phone, while his mother was listening pt told that he is coherent, knows his rights as a patient, his birthday and the reigning President while he was born Dr Sunshine. advised to stay also that he is leaving against medical advise. He told his mother to come get him and the mother called us back that called Amena pt's girlfriend on the way to get him @[id number] pt escorted out of the unit accompanied by security personel awake alert oriented unsteady gait but ambulatory.
--- NOTE | 2020-11-13 10:06 | NUR ---
DC PLANNING LATE ENTRY CALL WAS DONE AT ABOUT 10:00AM SW CALLED PATIENT'S PCP OFFICE AT [facility] MD SAMIA FAULKNER TO SET UP A FOLLOW UP APPOINTMENT FOR PATIENT AFTER HIS DC FROM [facility]. SPOKE TO MYRNA WHO WAS ABLE TO SCHEDULED PATIENT'S APPOINTMENT FOR 11/15/2020 AT 8:30AM. MANNIE CALL PATIENT AT SPOKE TO PATIEN'S MOTHER LORIE CUNNINGHAMZIAGERRenard TO DISCUSS PATIENT'S APPOINMENT WITH PCP. PROVIDED DATE, TIME AND ADDRESS FOR APPOINMENT. PATIENT'S MOTHER THANKED THESE ACCOUNT INFORMATION CLERK AND ENDED THE CALL.
== END 2020-11-12 15:16 | disposition home or self-care (01) | DRG 42 ==
LOC: MED 19:08 → EDBD 19:08 → MTU 11-08 00:03 → MIC 11-08 05:41
PROVIDERS: ADMIT Internal Medicine; ATTEND Internal Medicine
PROC: 5A1945Z Respiratory Ventilation, 24-96 Consecutive Hours (ICD-10-PCS; principal; 2020-11-08)
PROC: 0BH17EZ Insertion of Endotracheal Airway into Trachea, Via Natural or Artificial Opening (ICD-10-PCS; 2020-11-08)
PROC: 02HV33Z Insertion of Infusion Device into Superior Vena Cava, Percutaneous Approach (ICD-10-PCS; 2020-11-08)
DX: G31.2 Degeneration of nervous system due to alcohol (principal); J96.00 Acute respiratory failure, unspecified whether with hypoxia or hypercapnia; E11.10 Type 2 diabetes mellitus with ketoacidosis without coma; I95.9 Hypotension, unspecified; R65.10 Systemic inflammatory response syndrome (SIRS) of non-infectious origin without acute organ dysfunction; E87.6 Hypokalemia; F10.929 Alcohol use, unspecified with intoxication, unspecified; Y90.8 Blood alcohol level of 240 mg/100 ml or more; F10.939 Alcohol use, unspecified with withdrawal, unspecified; Z20.822 Contact with and (suspected) exposure to COVID-19; E83.42 Hypomagnesemia; S01.81XA Laceration without foreign body of other part of head, initial encounter; X58.XXXA Exposure to other specified factors, initial encounter; Y93.89 Activity, other specified; Y92.89 Other specified places as the place of occurrence of the external cause; Y99.8 Other external cause status
CPT/HCPCS: 31500; 36415; 36600; 70450; 70486; 71045; 80048; 80053; 80305; 81001; 82140; 82150; 82803; 83036; 83605; 83690; 83735; 83880; 84100; 84439; 84443; 84484; 85025; 85610; 85730; 87040; 87070; 87081; 87186; 87205; 94002; 94003; 96361; 96374; 96375; 99291; 99292; A9153; C9113; G0482; J0696; J1200; J1630; J1650; J1815; J2060; J2250; J2270; J2405; J2560; J2704; J3360; J3411; J3475; J3480; J3490; J7030; J7060; Q0092